=== PATIENT | male | born 1950 | race African-American/Black ===

== ENCOUNTER → 2017-01-22 | Outpatient (CLI) | payer OTHER ==
[~2017-01-22] VITALS: Ht 182.9 cm; Wt 72.6 kg
[~2017-01-22] MED LIST: ARANESP 6060 MCG/0.3 IJ; CARDURA4 MG PO; COREG25 MG PO; COUMADIN 5 MG TA5 M1 PO; ENOXAPARIN60 MG/0.1 SUBQ; FLOMAX0.4 MG PO; HYDROCODONE-APA1 TA1 PO; HYDROXYZINE HCL25 M1 PO; LISINOPRIL20 MG PO; NEPHROCAPS SOFT1 CAP PO; RENVELA800 MG PO; SENSIPAR60 MG PO; VANCOCIN 125 M125 M1 PO; VANCOMYCIN1 GM/1001 IV; VOLTAREN GEL 1100 G2 TOP; ZOSYN 3.373.375 GM/1 IV
[2017-01-22 09:57] VITALS: BP 196/84
[2017-01-22 10:54] LABS: HEMATOCRIT 36.8 % (42.0-52.0); HEMOGLOBIN 11.6 gm/dL (14.0-18.0); MCH 28.9 pg (26.0-34.0); MCHC 31.6 g/dL (28.0-37.0); MCV 91.5 fL (80.0-100.0); RBC 4.02 mil/uL (4.50-6.00); RDW 19.5 % (10.5-14.5); WBC 6.8 thou/uL (4.0-11.0)
[2017-01-22 10:57] LABS: CALCIUM 9.4 mg/dL (8.5-10.1); CREATININE 9.4 mg/dL (0.7-1.3)
[2017-01-22 11:09] LABS: APTT 28.5 Seconds (24.5-32.8); INR 1.1
== END | disposition home or self-care (01) ==
LOC: SPEC 08:56
PROVIDERS: Radiology Diagnostic Radiology
DX: N18.6 End stage renal disease (principal); L89.899 Pressure ulcer of other site, unspecified stage; I73.89 Other specified peripheral vascular diseases; E11.22 Type 2 diabetes mellitus with diabetic chronic kidney disease; I12.0 Hypertensive chronic kidney disease with stage 5 chronic kidney disease or end stage renal disease; E11.40 Type 2 diabetes mellitus with diabetic neuropathy, unspecified; J45.909 Unspecified asthma, uncomplicated; D64.9 Anemia, unspecified; Z99.2 Dependence on renal dialysis; Z85.51 Personal history of malignant neoplasm of bladder; Z90.49 Acquired absence of other specified parts of digestive tract; Z96.642 Presence of left artificial hip joint; Z87.891 Personal history of nicotine dependence; Z98.890 Other specified postprocedural states; Z79.899 Other long term (current) drug therapy